=== PATIENT | male | born 1975 | race Caucasian/White ===

== ENCOUNTER 2020-04-29 22:12 | Emergency (ER) | payer SELFPAY ==
[~2020-04-29] VITALS: Ht 182.9 cm; Wt 77.1 kg
[2020-04-29 22:25] VITALS: BP_SYST 163
[2020-04-29] MEDS ORDERED: CYCLOBENZAPRINE HCL 10 MG TABLET (FLEXERIL) PO ONE (23:15)
[2020-04-29] MEDS ORDERED: KETOROLAC TROMETHAMINE 60 MG/2 ML VIAL IM ONE (23:15)
[2020-04-30 00:27] VITALS: BP_SYST 163
== END 2020-04-30 00:25 | disposition home or self-care (01) ==
LOC: SED 22:12
DX: S39.012A Strain of muscle, fascia and tendon of lower back, initial encounter (principal); Z71.6 Tobacco abuse counseling; X50.3XXA Overexertion from repetitive movements, initial encounter; Y93.89 Activity, other specified; Y92.89 Other specified places as the place of occurrence of the external cause; Y99.8 Other external cause status
CPT/HCPCS: 96372; 99283

== ENCOUNTER 2022-06-19 14:41 | Emergency (ER) | payer MEDICAID ==
[~2022-06-19] VITALS: Ht 182.9 cm; Wt 99.8 kg
--- NOTE | 2022-06-19 14:41 | NUR ---
BROUGHT INTO TENT AND TRIAGED. WILL ASSUME CARE.
[2022-06-19 14:42] VITALS: BP_SYST 145
--- NOTE | 2022-06-19 15:35 | NUR ---
DR PALOMINO OUT TO TRIAGE TENT FOR EVALUATION
[2022-06-19] MEDS ORDERED: NIRM1TAB PO (16:33)
[2022-06-19] MEDS ORDERED: IBUP-1971 PO (16:33)
[2022-06-19] MEDS ORDERED: BENZ100C92 PO (16:33)
--- NOTE | 2022-06-19 16:47 | NUR ---
Patient given written and verbal discharge instructions and verbalizes understanding. ER MD discussed with patient the results and treatment provided. Patient in stable condition. ID arm band removed. Rx of PAXLOVID, IBUPROFEN, BENZONTATE given. Patient educated on pain management and to follow up with PMD. Pain Scale 0/10. Opportunity for questions provided and answered. Medication side effect fact sheet provided.
== END 2022-06-19 16:47 | disposition home or self-care (01) ==
LOC: SED 14:41
DX: U07.1 COVID-19 (principal); J06.9 Acute upper respiratory infection, unspecified; R05.9 Cough, unspecified; R09.81 Nasal congestion; R50.9 Fever, unspecified; Z79.899 Other long term (current) drug therapy
CPT/HCPCS: 99283